=== PATIENT | female | born 1980 | race Caucasian/White ===

== ENCOUNTER 2016-10-21 13:20 | Emergency (ER) | payer OTHER | END 2016-10-21 14:45 | disposition home or self-care (01) | LOC: ER 13:20 | DX: L02.411 Cutaneous abscess of right axilla (principal); F17.210 Nicotine dependence, cigarettes, uncomplicated; Z88.1 Allergy status to other antibiotic agents ==

== ENCOUNTER 2016-11-06 15:53 | Emergency (ER) | payer OTHER | END 2016-11-06 16:33 | disposition home or self-care (01) | LOC: ER 15:53 | DX: L02.411 Cutaneous abscess of right axilla (principal); F17.210 Nicotine dependence, cigarettes, uncomplicated; Z88.1 Allergy status to other antibiotic agents ==

== ENCOUNTER 2016-12-06 17:07 | Emergency (ER) | payer OTHER | END 2016-12-06 18:55 | disposition home or self-care (01) | LOC: ER 17:07 | DX: R10.9 Unspecified abdominal pain (principal); R11.0 Nausea; R30.0 Dysuria; F17.210 Nicotine dependence, cigarettes, uncomplicated; Z88.1 Allergy status to other antibiotic agents | CPT/HCPCS: 36415; 96374; 96375; J1885 ==